=== PATIENT | female | born 1955 | race Caucasian/White ===

== ENCOUNTER → 2016-12-30 | Outpatient (CLI) | payer BC, SELFPAY ==
[~2016-12-30] MED LIST: ADVAIR DIS1 PUFF/DO1 IH; CALCITRIOL0.25 MCG PO; COUMADIN5 MG PO; COZAAR100 MG PO; FEOSOL-DPS325 MG PO; FLEXERIL-DPS10 MG PO; LASIX DPS80 MG PO; MIRALAX PACKET17 GM PO; NORVASC DPS10 MG PO; OXY IR DPS5 MG PO; PAXIL40 MG PO; PRAVACHOL20 MG PO; SENOKOT-S TABL1 EACH PO; SOD BICARB TAB650 MG PO; TYLENOL DPS325 MG PO; ULTRAM DPS50 MG PO; VITAMIN D-32000 UNI1 PO
== END | disposition home or self-care (01) ==
LOC: PTH.S 07:58
DX: Z01.818 Encounter for other preprocedural examination (principal); D64.9 Anemia, unspecified; I10 Essential (primary) hypertension

== ENCOUNTER 2017-01-11 05:59 | Inpatient (IN) | payer BC, SELFPAY ==
[~2017-01-11] VITALS: Ht 180.3 cm; Wt 126.5 kg
--- NOTE | ~2017-01-11 | HP ---
ADMIT: 01/11/2017 RM/LOC: [facility] MR#: [id number] [address] [place] [id number] ARMIDA CARREON [address] [place], [place] [address] Pre-OP History and Physical SEX: F AGE: 61 : 1955 DATE OF SERVICE: CHIEF COMPLAINT: Knee pain. HISTORY OF PRESENT ILLNESS: The patient is a 61-year-old female having bilateral knee discomfort. She has had prior injections with limited improvement. She has failed conservative care, now being admitted for right total knee arthroplasty. She does have a history of some venous stasis changes in the leg. She has been seen by Dermatology and these are all cleared up, having no problems. PAST MEDICAL HISTORY: Past medical problem includes: 1. Arthritis. 2. Asthma. 3. Hypertension. 4. Kidney disease. 5. Diabetes. 6. Depression. 7. Venostasis disease. PAST SURGICAL HISTORY: 1. Ankle arthroscopy. 2. . MEDICATIONS: Include: 1. Pravastatin. 2. Tramadol. 3. Lasix. 4. Losartan. 5. Amlodipine. 6. Calcium. ALLERGIES: SULFA. SOCIAL HISTORY: Denies any tobacco or alcohol use. REVIEW OF SYSTEMS: Negative. PHYSICAL EXAMINATION: Healthy-appearing female. She is morbidly obese. She has a varus deformity to her right knee. She has significant crepitus. Range of motion 5 to 110 degrees. No pain in the hip. Leg is neurovascularly intact. DIAGNOSTIC DATA: X-rays AP, lateral, PA flexion view shows advanced right ADMIT: 01/11/2017 RM/LOC: [facility] MR#: [id number] [address] [address] ARMIDA CARREON [address] [place] [address] Pre-OP History and Physical SEX: F AGE: 61 : 1955 knee arthritis. No joint space remaining. Advanced patellofemoral arthritis. IMPRESSION: 1. Advanced right knee degenerative joint disease. 2. Morbid obesity. 3. Diabetes. PLAN: We talked about different options and failed conservative care. At this point, proceeding with a right total knee arthroplasty. She is aware of the risks, benefits, options and agreed to proceed. She has been seen and cleared from a medical standpoint. Plan on using antibiotics in the cement due to her diabetes and obesity. Zeke Maddox MD/ reynaldo JOB #: [id number] CC: Zeke Maddox, Attending Physician Radha Russell, Family Physician
--- NOTE | 2017-01-11 07:35 | CO ---
ADMIT: 01/11/2017 RM/LOC: [facility] MR#: [id number] [id number] [place], [place] [address] KLARISSA CARREON [address] [place] [address] Consultation Report SEX: F AGE: 61 : 1955 DATE OF CONSULTATION: 01/04/2017 ATTENDING PHYSICIAN: Zeke Maddox CONSULTING PHYSICIAN: Radha Russell MD REASON FOR CONSULTATION: Consultation requested by Dr. Zeke Maddox for medical clearance prior to total knee replacement. HISTORY OF PRESENT ILLNESS: Klarissa Carreon is a 61-year-old lady, who is scheduled for right total knee replacement with Dr. Zeke Maddox on 01/11/2017. She has chronic medical illnesses including diabetes, hypertension, hyperlipidemia, and chronic renal failure due to diabetes. She has had prior surgery, but no other surgeries. She has severe bilateral knee pain and is planning on right total knee and then at some point in the future, do a left total knee replacement as well. She has no cardiac disease history. PAST MEDICAL HISTORY: Significant for: 1. Diabetes type 2, controlled by diet changes. 2. Hypertension. 3. Mild intermittent asthma. 4. Hyperlipidemia. 5. Chronic kidney disease, stage 2. PAST SURGICAL HISTORY: Prior right ankle surgery remotely after trauma. She has also had a and required transfusion. MEDICATIONS: 1. Advair 250/50 one puff twice daily. 2. Amlodipine 10 mg daily. 3. Calcitriol 0.25 mcg daily. 4. Lasix 80 mg b.i.d. 5. Losartan 100 mg daily. 6. Paroxetine 40 mg daily. 7. Pravastatin 20 mg at bedtime. 8. Vitamin D 400 units daily. 9. Sodium bicarb tablets 650 mg b.i.d. 10.Spironolactone 25 mg daily. 11.Ventolin inhaler two puffs every 6 hours as needed for shortness of breath. 12.Tramadol 50 mg one every 6 hours p.r.n. joint pain. SOCIAL HISTORY: The patient is . 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 She denies alcohol or drug use. She is a former smoker, but has not smoked for many years. She drinks caffeine daily. ADMIT: 01/11/2017 RM/LOC: [facility] MR#: [id number] [address] [address] KLARISSA CARREON [address] [place] [address] Consultation Report SEX: F AGE: 61 : 1955 ALLERGIES: SULFA. FAMILY HISTORY: Mother had lupus and at age 72. Father had congestive heart failure and COPD, at age 59. Paternal grandfather had heart attack in his 90s. Paternal grandmother had rheumatoid arthritis. On the maternal side, her grandparents had stroke. REVIEW OF SYSTEMS: GENERAL: Benign. She denies fevers or chills. ENT: Benign. No trouble swallowing. No congestion. No vision changes. Her teeth are in good repair. CARDIOPULMONARY: Benign. She denies any recent troubles with her wheezing. She does get extremity swelling and takes her Lasix routinely. Denies chest pain or palpitations. GASTROINTESTINAL: Benign. MUSCULOSKELETAL: Positive for bilateral knee pain. This limits her ability to ambulate and just do normal daily activities. GENITOURINARY: Benign. NEUROPSYCHIATRIC: Benign. She is treated for depression. PHYSICAL EXAMINATION: VITAL SIGNS: Blood pressure 122/68, heart rate in the 90s and regular. She is afebrile. Oxygenation at 98% on room air. Her weight is 258 pounds with a height of 68 inches, giving her a body mass index of 39.2. GENERAL: Klarissa is alert and oriented. No distress. ENT: Benign with tongue extending in the midline. Her teeth are in good repair. Throat is clear. NECK: Supple with no jugular venous distention. No obvious adenopathy. LUNGS: Clear today. No wheezing. No rhonchi. HEART: Regular without murmur. ABDOMEN: Obese, nontender. Bowel sounds are present. EXTREMITIES: She has obvious degenerative joint changes of the knees with genu valgus more obvious on the right side. She has 2+ lower extremity edema which is chronic. SKIN: Warm and dry. LABORATORY AND X-RAY DATA: Lab data done at [facility] on 12/30/2016 showed a white count of 8.3, hemoglobin 11.1, hematocrit 33.9, platelet count 261. Her sodium is 142, potassium 4.1, chloride 105, glucose 125, her creatinine is 2.4 with a BUN of 32, and that is fasting. Her GFR is 21. EKG shows normal sinus rhythm with no concerning findings. ASSESSMENT: 1. Degenerative joint disease of the knees with planned right knee replacement. 2. Hypertension. 3. Chronic kidney disease. 4. Hyperlipidemia. 5. Diabetes type 2. ADMIT: 01/11/2017 RM/LOC: [facility] MR#: [id number] [address] [place], [place] [id number] KLARISSA CARREON [address] [place] [address] Consultation Report SEX: F AGE: 61 : 1955 6. Morbid obesity. PLAN: She will proceed with knee replacement as planned. I am going to discuss any preoperative management with her flag signalman, Dr. Porter, and see if he would recommend anything other than her current medicines. Her blood pressure is adequately controlled. Her fasting glucose readings at home range in the 100 to 120 range. Today was 125 fasting. We will monitor blood sugars closely and use sliding scale insulin while in the hospital. VTE prophylaxis will be with Xarelto. She will need close monitoring for intake and output and her renal function as well. From a cardiac standpoint, she is cleared and does not need further evaluation. Radha Russell MD/ reynaldo JOB #: [id number] CC: Zeke Maddox, Attending Physician Radha Russell, Family Physician
--- NOTE | 2017-01-13 11:55 | CO ---
ADMIT: 01/11/2017 RM/LOC: [address] [facility] MR#: [id number] [address] [place], [place] [address] ARMIDA CARREON [address] [place] [address] Consultation SEX: F AGE: 61 : 1955 DATE OF CONSULTATION: 01/11/2017 ATTENDING PHYSICIAN: Zeke Maddox CONSULTING PHYSICIAN: Julian Porter MD REASON FOR CONSULTATION: Chronic kidney disease stage 4, hypertension. HISTORY OF PRESENT ILLNESS: The patient is a 61-year-old female, who is well known to me. She has a history of chronic kidney disease secondary to diabetic nephropathy. Baseline creatinine is around 2.4. She has been having issues with pain in her bilateral knees. She came into the hospital for the planned total knee arthroplasty of her right knee that she underwent earlier today. She is now postop. Most recent blood pressure was in the 90s. She complains of some pain in her right knee. Other than that, she feels fairly well. She held her blood pressure medications as per our instructions that were given to her. She denies any urinary or abdominal complaints at this time. REVIEW OF SYSTEMS: A complete review of systems is negative in detail except as mentioned in history of present illness above. PAST MEDICAL HISTORY: 1. Hypertension. 2. Type 2 diabetes mellitus. 3. Chronic kidney disease stage 4 with a baseline creatinine of around 2.4. 4. Acute kidney injury secondary to NSAIDs. 5. Depression. 6. Asthma. 7. Osteoarthritis. 8. Anemia in chronic kidney disease. 9. Renal osteodystrophy. 10.Metabolic acidosis. ALLERGIES: SULFA. SOCIAL HISTORY: She is employed. No tobacco, alcohol, or recreational drug use. FAMILY HISTORY: No family history of chronic kidney disease or renal replacement therapy. Mother had lupus. Father had emphysema. MEDICATIONS: Reviewed and addressed in the chart. PHYSICAL EXAMINATION: VITAL SIGNS: Temperature 97.6 Fahrenheit, pulse 75, blood pressure 153/92, most recent blood pressure was actually in the 90s. GENERAL: She is comfortable on recliner. HEENT: Head is nontraumatic and normocephalic. Extraocular movements are intact. She is wearing supplemental oxygen. ADMIT: 01/11/2017 RM/LOC: [address] [facility] MR#: [id number] [address] [place], [place] [address] ARMIDA CARREON [address] [place] [address] Consultation SEX: F AGE: 61 : 1955 CHEST: Clear to auscultation. CVS: Regular rhythm. S1 and S2 heard. No rubs, murmurs, or gallops. ABDOMEN: Soft and nontender. EXTREMITIES: Right lower extremity edema, she has a brace on her right knee. SKIN: No rash or nodules. NEUROLOGIC: Alert, awake, and oriented x3. PSYCHIATRIC: Affect and memory within normal limits. LABORATORY DATA: Reviewed. Labs from 12/30 showed a creatinine of 2.4 at her baseline. CO2 was 27. Hemoglobin is 11.1. ASSESSMENT AND PLAN: 1. Chronic kidney disease stage 4 - I will monitor her kidney function postop. Continue supportive care. Avoid nephrotoxins, NSAIDs, IV contrast, or Fleets enemas. 2. Hypertension - blood pressure is actually low. I will hold her antihypertensives for the time being, especially furosemide and losartan. 3. Metabolic acidosis - continue sodium bicarbonate 1300 mg p.o. b.i.d. 4. Renal osteodystrophy - continue calcitriol 0.25 mcg daily and vitamin D 2000 units a day. Thank you for this consultation. Please do not hesitate to contact me with any questions. Julian Porter MD/ reynaldo JOB #: [id number] CC: Zeke Maddox, Attending Physician Radha Russell, Family Physician
--- NOTE | 2017-01-18 21:12 | OR ---
ADMIT: 01/11/2017 RM/LOC: 526 [facility] MR#: [id number] [address] [address] ARMIDA CARREON [address] [place] [address] Operative/Delivery Room Report SEX: F AGE: 61 : 1955 SURGERY DATE: 01/11/2017 SURGEON: Zeke Maddox MD PREOPERATIVE DIAGNOSIS: Right knee degenerative joint disease. POSTOPERATIVE DIAGNOSIS: Right knee degenerative joint disease. PROCEDURES: 1. Right total knee arthroplasty. 2. Intraarticular block. PRE K LEAD TEACHER: Roman Roman PA-C ANESTHESIA: Spinal. COMPLICATIONS: None. ESTIMATED BLOOD LOSS: 100 mL. TOURNIQUET TIME: 47 minutes. COMPONENTS: 1. Size 7 lugged Attune femoral component. 2. Size 6 Attune tibial component. 3. A 6 mm posterior stabilized insert. 4. A 35 mm oval patellar button. 5. Curtis antibiotic cement. DESCRIPTION OF THE PROCEDURE: The patient was taken to the Operating Room and the correct extremity was identified. The patient received a spinal anesthetic. The right lower extremity was prepped and draped in a standard fashion. The leg was exsanguinated and tourniquet inflated. An anterior incision was made and dissection was carried through the subcutaneous tissue. A medial parapatellar arthrotomy was performed. The patella subluxed laterally. The infrapatellar fat pad was partially excised for exposure. At that point, the distal femur was opened up with a drill. We cut 10 mm off the distal femur in 5 degrees of valgus using an intramedullary guide. We then cut the tibia perpendicular to its long axis taking it flush with the affected side with an extramedullary guide. We then sized the femur to a size 7 and pinned this in appropriate external rotation aligning it with the epicondylar axis. We then made anterior posterior chamfer cuts with the 4-in-1 cutting block. We opened up the joint space and removed the remaining posterior osteophytes, meniscus, and PCL ligament. We made our box cut centralizing the femoral component. The tibia was subluxed anteriorly, fit for a size 6 tibial tray, punched and drilled in appropriate external rotation. We then removed the remaining tibial osteophytes. We then cut the patella perpendicular to its long axis taking it flush with the lateral facet and fit it for a 38 mm oval patellar button restoring patellar height. We then put in trial ADMIT: 01/11/2017 RM/LOC: 526 [facility] MR#: [id number] [address] [address] WOODARMIDA [address] [place] [address] Operative/Delivery Room Report SEX: F AGE: 61 : 1955 components with a 6 mm insert. At that point, we had full extension, full flexion, patella tracked centrally and no lateral release was required. The knee was also stable to varus and valgus stress testing. All trial components were removed and all the bony surfaces were Waterpik'd clean. We then cemented the tibia, femur, and patella in a standard fashion, put in the trial 6 mm insert and held the knee in extension. Once the cement was hard, we deflated the tourniquet, obtained hemostasis, irrigated out the wound thoroughly, removed the trial insert and put in the real insert. The knee was again found to be stable with full range of motion. No Hemovac drain was used. At that point, the extensor mechanism was closed with an interrupted 0- Vicryl suture with the knee in flexion. The subcutaneous tissue was closed 2-0 Vicryl and char were placed in the skin. Sterile dressings were then applied. The patient was taken to the Recovery Room in stable condition with no complications. Zeke Maddox MD/ reynaldo JOB #: [id number] CC: Zeke Maddox, Attending Physician Radha Russell, Family Physician
--- NOTE | 2017-02-09 16:20 | DS ---
ADMIT: 01/11/2017 RM/LOC: 526 [facility] MR#: [id number] [address] [address] KLARISSA CARREON [address] [place] [address] General Discharge Summary SEX: F AGE: 61 : 1955 ADMISSION DATE: 01/11/2017 DISCHARGE DATE: 01/14/2017 REASON FOR ADMISSION: Elective right total knee arthroplasty after failing conservative management for osteoarthritis. PREOPERATIVE DIAGNOSIS: Right knee degenerative joint disease. POSTOP: Right knee degenerative joint disease. PROCEDURE PERFORMED: Right total knee arthroplasty. ANESTHETIC: Spinal. COMPLICATIONS: None. ESTIMATED BLOOD LOSS: 100 mL. SURGEON: Zeke Maddox MD REPLENISHMENT MERCHANDISING ASSOCIATE: Roman Roman PA-C. ACTIVE MEDICAL PROBLEMS: 1. Hypertension. 2. Type 2 diabetes. 3. Chronic kidney disease, stage IV. 4. Depression. 5. Asthma. 6. Osteoarthritis. 7. Anemia in chronic kidney disease. 8. Renal osteodystrophy. 9. Metabolic acidosis. HOSPITAL COURSE: Klarissa bryant was admitted on 01/11/2017 for elective right total knee arthroplasty, it was completed successfully by Dr. Maddox. There were no complications. Postoperatively, she did well. Pain controlled with use of oral pain medications as well as her intraoperative pain cocktail, and worked for a couple of days, but she did have some elevation in pain. Due to her history of chronic renal disease stage IV as well as hypertension, Dr. Porter was consulted with Nephrology. Dr. Russell was primary care during her stay. Klarissa participated well with physical therapy. Coumadin was used for DVT prophylaxis. Hospital course was otherwise uneventful. She did experience mild acute surgical blood-loss anemia, her hemoglobin dropped to 9.6, but remained hemodynamically stable, not requiring transfusion. Postop day #3, she was doing well. She was, stable participating well with therapy and ready for discharge. DISCHARGE MEDICATIONS: 1. Cozaar 100 mg daily. ADMIT: 01/11/2017 RM/LOC: 526 [facility] MR#: [id number] [address] [address] KLARISSA CARREON [address] [place] [address] General Discharge Summary SEX: F AGE: 61 : 1955 2. MiraLax p.r.n. 3. Norvasc 10 mg daily. 4. Paxil 40 mg daily. 5. Pravachol 20 mg daily. 6. Calcitriol 0.25 mcg daily. 7. Senokot b.i.d. p.r.n. 8. Sodium bicarbonate tablet 650 mg b.i.d. 9. Tylenol 650 mg q.4h p.r.n. 10.Ultram 50 mg, 1-2 q.6 p.r.n. 11.Vitamin D 1000 units daily. 12.Advair 2 puffs b.i.d. 13.Flexeril 10 mg t.i.d. p.r.n. 14.OxyIR 5 mg, 1-2 q.4h p.r.n. DISCHARGE INSTRUCTIONS: Klarissa will undergo therapy per total knee arthroplasty protocol. Follow up in Orthopedic office in 2 weeks for wound check, 6 weeks with x-rays. Follow up with her primary care as directed. Roman Roman PA-C / Zeke Maddox MD / benl JOB #: [id number] CC: Zeke Maddox MD, Attending Physician Radha Russell MD, Family Physician
[2017-05-14] MEDS ORDERED: LASIX DPS80 MG PO (20:00)
[2017-05-14] MEDS ORDERED: ADVAIR DIS1 PUFF/DO1 IH (20:01)
[2017-05-14] MEDS ORDERED: PRAVACHOL20 MG PO (20:01)
[2017-05-14] MEDS ORDERED: VITAMIN D-32000 UNI1 PO (20:01)
[2017-05-14] MEDS ORDERED: NORVASC DPS10 MG PO (20:01)
[2017-05-14] MEDS ORDERED: COZAAR100 MG PO (20:01)
[2017-05-14] MEDS ORDERED: SOD BICARB TAB650 MG PO (20:01)
[2017-05-14] MEDS ORDERED: PAXIL40 MG PO (20:01)
[2017-05-14] MEDS ORDERED: CALCITRIOL0.25 MCG PO (20:01)
[2017-05-14] MEDS ORDERED: SENOKOT-S TABL1 EACH PO (20:02)
[2017-05-14] MEDS ORDERED: MIRALAX PACKET17 GM PO (20:02)
[2017-05-14] MEDS ORDERED: COUMADIN5 MG PO (20:02)
[2017-05-14] MEDS ORDERED: ULTRAM DPS50 MG PO (20:02)
[2017-05-14] MEDS ORDERED: FLEXERIL-DPS10 MG PO (20:03)
[2017-05-14] MEDS ORDERED: FEOSOL-DPS325 MG PO (20:03)
[2017-05-14] MEDS ORDERED: OXY IR DPS5 MG PO (20:03)
[2017-05-14] MEDS ORDERED: TYLENOL DPS325 MG PO (20:03)
== END 2017-01-14 12:20 | disposition home or self-care (01) | DRG 470 ==
LOC: WOR 05:59 → 5MS 05:59 → WOR 05:59 → 5MS 10:32
PROVIDERS: ADMIT Orthopaedic Surgery
PROC: 0SRC0J9 Replacement of Right Knee Joint with Synthetic Substitute, Cemented, Open Approach (ICD-10-PCS; principal; 2017-01-11)
DX: M17.0 Bilateral primary osteoarthritis of knee (principal); N18.4 Chronic kidney disease, stage 4 (severe); E87.2 Acidosis; D62 Acute posthemorrhagic anemia; E11.22 Type 2 diabetes mellitus with diabetic chronic kidney disease; N25.0 Renal osteodystrophy; E78.5 Hyperlipidemia, unspecified; E66.9 Obesity, unspecified; R50.82 Postprocedural fever; D64.9 Anemia, unspecified; J45.20 Mild intermittent asthma, uncomplicated; F32.9 Major depressive disorder, single episode, unspecified; I12.9 Hypertensive chronic kidney disease with stage 1 through stage 4 chronic kidney disease, or unspecified chronic kidney disease; D63.1 Anemia in chronic kidney disease; Z87.891 Personal history of nicotine dependence; Z68.36 Body mass index [BMI] 36.0-36.9, adult